=== PATIENT | female | born 1960 | race Caucasian/White ===

== ENCOUNTER 2021-05-28 16:14 | Emergency (ER) | payer BC, SELFPAY ==
[2021-05-28 16:20] VITALS: BP 145/76; PULSE 60; RESP 20; TEMP 36.3; O2SAT 98
--- NOTE | 2021-05-28 16:51 | ED.FEMALEGU ---
HPI - Female Genitourinary General Chief complaint: Urogenital-Female Stated complaint: UTI Time Seen by Provider: 05/28/21 16:51 Source: patient and RN notes reviewed Mode of arrival: ambulatory Limitations: no limitations History of Present Illness HPI Narrative: 61-year-old female presents to the [facility] with complaints of urinary symptoms. Patient reports frequency, urgency, burning. States that she is not peeing as much. Denies fevers, abdominal pain or back pain. MD elicited complaint: UTI Related Data Home Medications Medication Instructions Recorded Confirmed escitalopram oxalate 10 mg PO DAILY 05/28/21 05/28/21 sumatriptan succinate 100 mg PO DAILY PRN 05/28/21 05/28/21 Allergies Allergy/AdvReac Type Severity Reaction Status Date / Time No Known Allergies Allergy Unknown Verified 05/28/21 16:34 Review of Systems Review of Systems: All systems reviewed & are unremarkable except as noted in HPI and below Constitutional: Constitutional: Reports no additional constitutional complaints, Denies chills and Denies fatigue Eyes: Eyes: Reports no additional eye complaints ENT: Reports system reviewed and no additional complaints, except as documented Cardiovascular: Cardiovascular: Reports no additional cardiovascular complaints Respiratory: Respiratory: Reports no additional respiratory complaints Genitourinary: Genitourinary: Reports as per HPI, Reports nocturia, Reports dysuria, Denies flank pain and Denies urinary incontinence Musculoskeletal: Musculoskeletal: Reports no additional musculoskeletal complaints Integumentary/Breasts: Skin/Breast: Reports system reviewed and no additional complaints, except as docu Neurologic: Reports system reviewed and no additional complaints, except as documented Psychiatric: Psychiatric: Reports no additional psychiatric complaints Allergic/Immunologic: Allergic/Immunologic: Reports no additional allergic/immunologic complaints PMFSH Comments At the time of my signature, I reviewed and agree with the nursing past medical, surgical, social, and family history. There is no relevant family history pertinent to the patient complaint. Exam Const: General: healthy appearing, no acute distress and alert Nutritional Appearance: well nourished Orientation/consciousness: patient oriented x3 Limitations: no limitations HENMT: Head: normal to inspection Ears: external ears normal, TM's abnormal bilaterally and EAC's not normal Eyes: Pupils: Equal, round and reactive pupils present Neck: Neck: normal visual inspection, no lymphadenopathy and no meningeal signs Chest: Chest palpation & inspection: normal inspection of the chest Resp: Effort & Inspection: normal respiratory effort and no use of accessory muscles Auscultation: clear to auscultation bilaterally, no crackles, no rales, no rhonchi and no wheezes Cardio: Rate: regular rate Rhythm: regular rhythm Back/Spine/Pelvis: Back: no CVA tenderness Skin: General skin exam: normal color Rashes: no rashes Wounds: no wounds Neuro: General: patient oriented x3, moves all extremities, no meningeal signs and no focal motor deficits Speech: normal speech Gait exam (Neuro): Normal gait present Extrem: General: normal to inspection Psych: Mental Status: mental status grossly normal Affect: normal affect Attitude: cooperative Thought content: Yes Normal thought content present Judgement: Good judgement present (Psych) Course Course Emergency Course: Discharge instructions reviewed with patient, as well as provided in writing per nursing staff. The instructions also include specific and strict return/GO TO THE ER as well as f/u information. All questions have been answered, and the patient deny any further questions with discharge and discharge plan. Vital Signs Vital signs: Vital Signs Temperature 97.4 F L 05/28/21 16:20 Pulse Rate 60 05/28/21 16:20 Respiratory Rate 20 05/28/21 16:20 Blood Pressu
== END 2021-05-28 17:00 | disposition home or self-care (01) ==
PROVIDERS: Emergency Provider Nurse Practitioner
DX: N39.0 Urinary tract infection, site not specified (principal)
CPT/HCPCS: 81003; 87086; 87088; 99203; G0463

== ENCOUNTER 2021-12-07 08:16 | Emergency (ER) | payer BC, SELFPAY ==
--- NOTE | 2021-12-07 08:18 | ED.FEMALEGU ---
HPI - Female Genitourinary General Chief complaint: Urogenital-Male Stated complaint: poss uti Time Seen by Provider: 12/07/21 08:41 Source: patient and RN notes reviewed Mode of arrival: ambulatory Limitations: no limitations History of Present Illness HPI Narrative: 61-year-old female presents with concern for urinary tract infection. She reports yesterday she began having dysuria, frequency, urgency, suprapubic pressure. She denies abdominal pain, fever, body aches, chills, sweats. She reports mild low back pain. She reports she took Azo last at 1:00 yesterday. MD elicited complaint: UTI Related Data Home Medications Medication Instructions Recorded Confirmed escitalopram oxalate 10 mg tablet 10 mg PO DAILY 05/28/21 12/07/21 sumatriptan succinate 100 mg tablet 100 mg PO DAILY PRN Migraine 05/28/21 12/07/21 Headache atorvastatin 10 mg tablet 10 tablet PO DAILY 12/07/21 12/07/21 Allergies Allergy/AdvReac Type Severity Reaction Status Date / Time No Known Allergies Allergy Unknown Verified 12/07/21 08:33 Review of Systems Review of Systems: CONSTITUTIONAL: Denies malaise, chills, sweats, or fever. CARDIOVASCULAR: Denies chest pain, palpitations, or edema. RESPIRATORY: Denies cough or dyspnea. GASTROINTESTINAL: Denies abdominal pain, nausea, vomiting, diarrhea GENITOURINARY: Reports dysuria, frequency, urgency, suprapubic pressure. Denies flank pain or hematuria. SKIN: Denies rash or itching. MUSCULOSKELETAL: Reports mild low back back pain, denies myalgia. All systems reviewed & are unremarkable except as noted in HPI and below PMFSH Comments At time of signature, agree with nursing past medical, surgical, social and family history. There is no relevant family history pertinent to the presenting complaint Exam Narrative: GENERAL: Well-appearing, well-nourished, and in no acute distress. HEAD: Normocephalic. EYES: PERRLA, conjunctivae clear. NECK: Supple. No lymphadenopathy CHEST: Clear to auscultation. No respiratory distress. HEART: Regular rate and rhythm. ABDOMEN: Soft, nontender upon palpation, nondistended, normal active bowel sounds, no palpable or pulsatile masses, no guarding. No CVA tenderness SKIN: Warm, dry, no rash. NEURO: Alert and oriented x3. PSYCH: Normal mood and affect Course Course Emergency Course: Patient is aware of diagnosis, understands and agrees to treatment plan. Anticipatory guidance given. Patient agrees to follow-up as directed and is aware of reasons to seek care at the emergency department. Portions of this record may have been created with voice recognition software Level of Care: Express Care Visit Vital Signs Vital signs: Reviewed. MDM - Female Genitourinary MDM Narrative Medical decision making narrative: Exam findings and UA show no acute concerns or changes; patient is non-toxic appearing and is in no distress. Patient is appropriate for outpatient treatment and follow-up. Differential Diagnosis Differential diagnosis: Likely urinary tract infection and cystitis Critical Care Time Critical Care Time Critical Care Time: No Discharge Plan Discharge Clinical Impression: Urinary tract infection Patient Disposition: Home, Self-Care Condition: Stable Instructions: Antibiotic Form Additional Instructions: We will send a urine culture to the lab; if the culture identifies an organism that the prescribed antibiotic will not treat, you will receive a phone call from an urgent care staff member and an appropriate antibiotic will be prescribed. -Your symptoms should begin to improve within a day of starting antibiotics. But you should finish all the antibiotic pills you get. Otherwise your infection might come back. -Also recommend: increase water intake. Tylenol/ibuprofen as needed for pain or fever -Follow-up with your primary care provider for urine recheck or seek ER visit if condition worsens with high fever, nausea, vomiting and severe back p
[2021-12-07 08:22] VITALS: BP 107/75; PULSE 61; RESP 20; TEMP 36.8; O2SAT 98
== END 2021-12-07 09:10 | disposition home or self-care (01) ==
PROVIDERS: Emergency Provider Nurse Practitioner
DX: N39.0 Urinary tract infection, site not specified (principal); F41.9 Anxiety disorder, unspecified
CPT/HCPCS: 81003; 87086; 99213; G0463

== ENCOUNTER 2022-09-15 16:10 | Emergency (ER) | payer BC, SELFPAY ==
[2022-09-15 16:17] VITALS: BP 106/61; PULSE 82; RESP 16; TEMP 37.8; O2SAT 99
--- NOTE | 2022-09-15 16:19 | ED.URI ---
HPI - URI/Sore Throat General Chief Complaint: Upper Respiratory Infection Stated Complaint: sore throat Time Seen by Provider: 09/15/22 16:30 Source: patient and RN notes reviewed Mode of arrival: ambulatory Limitations: no limitations History of Present Illness HPI Narrative: 62-year-old female presents with concern for cough and sore throat. Reports symptoms started yesterday. She reports she took a negative COVID test today. Reports she has been taking and Mucinex without relief. She denies fever, aches. Reports chills MD elicited complaint: cough and sore throat Related Data Home Medications Medication Instructions Recorded Confirmed escitalopram oxalate 10 mg tablet 10 mg PO DAILY 05/28/21 09/15/22 sumatriptan succinate 100 mg tablet 100 mg PO DAILY PRN Migraine 05/28/21 09/15/22 Headache Allergies Allergy/AdvReac Type Severity Reaction Status Date / Time No Known Allergies Allergy Unknown Verified 12/07/21 08:33 Review of Systems Review of Systems: CONSTITUTIONAL: Reports malaise, chills. Denies sweats, or fever. EYES: Denies visual changes, redness, or discharge. ENT: Reports rhinorrhea, congestion, sore throat. CARDIOVASCULAR: Denies chest pain, palpitations, or edema. RESPIRATORY: Reports cough. Denies dyspnea. GASTROINTESTINAL: Denies abdominal pain, nausea, vomiting, diarrhea SKIN: Denies rash or itching. MUSCULOSKELETAL: Denies myalgia. NEUROLOGIC: Denies headache. All systems reviewed & are unremarkable except as noted in HPI and below PMFSH Comments At time of signature, agree with nursing past medical, surgical, social and family history. There is no relevant family history pertinent to the presenting complaint Exam Narrative: GENERAL: Nontoxic appearing and in no acute distress. HEAD: Normocephalic EYES: PERRLA, conjunctivae clear ENT: Nares clear, turbinates edematous and erythematous, clear discharge. Mucous membranes moist. TM pearly lundy with dull light reflex bilaterally; no tragal tenderness. Oropharynx not erythematous without lesions. Tonsils not enlarged and without exudate, no drooling, no hoarseness, no trismus, uvula midline. NECK: Supple. No lymphadenopathy CHEST: Clear to auscultation, breath sounds equal. No wheezing, rhonchi, rales, or stridor. No respiratory distress, speaks in full sentences. Cough noted HEART: Regular rate and rhythm. No murmur heard. SKIN: Warm, dry, no rash. NEURO: Alert and oriented x3. PSYCH: Normal mood and affect Course Course Emergency Course: Patient is aware of diagnosis, understands and agrees to treatment plan. Anticipatory guidance given. Patient agrees to follow-up as directed and is aware of reasons to seek care at the emergency department. Portions of this record may have been created with voice recognition software Level of Care: Express Care Visit Vital Signs Vital signs: Reviewed. MDM - URI/Sore Throat MDM Narrative Medical decision making narrative: Differential diagnosis considered: Martinez virus, strep pharyngitis, allergic rhinitis, upper respiratory tract infection, sinusitis, rhinosinusitis, nasopharyngitis. viral pharyngitis, otitis media, otitis externa, pneumonia, bronchitis, viral cough syndrome, viral syndrome, and influenza. Exam findings show no acute concerns or changes; patient is non-toxic appearing and is in no distress. Patient is appropriate for outpatient treatment and follow-up. Lab Data Attestation: I reviewed the patient's lab results. Critical Care Time Critical Care Time Critical Care Time: No Discharge Plan Discharge Clinical Impression: Viral URI with cough Patient Disposition: Home, Self-Care Condition: Stable Instructions: Acute Cough (ED) Additional Instructions: Your rapid strep swab was negative today at [facility]. A throat culture will be sent to the laboratory for further testing. If the test is positive, you will receive a phone call within 48 hours and an appropriate a
== END 2022-09-15 16:40 | disposition home or self-care (01) ==
PROVIDERS: Emergency Provider Nurse Practitioner; PCP Physician Assistant
DX: J06.9 Acute upper respiratory infection, unspecified (principal); R05.9 Cough, unspecified
CPT/HCPCS: 87081; 87880; 99213; G0463

== ENCOUNTER 2022-12-27 13:31 | Emergency (ER) | payer BC, SELFPAY ==
--- NOTE | ~2022-12-27 | XR_ITS ---
Right ankle Technique: AP, oblique, and lateral views were obtained. Clinical History: Pain Findings: No acute fracture or dislocation is seen. Osseous alignment is anatomic. Ankle mortise and other visualized joint spaces are preserved. Mild lateral soft tissue swelling noted. Impression: No fracture or dislocation. Lateral soft tissue swelling. Reviewed, dictated and finalized at [facility]. Impression: No fracture or dislocation. Lateral soft tissue swelling.
[2022-12-27 13:38] VITALS: BP 131/76; PULSE 88; RESP 14; TEMP 36.4; O2SAT 98
[2022-12-27 13:51] VITALS: BP 131/76; PULSE 88; RESP 14; TEMP 36.4; O2SAT 98
--- NOTE | 2022-12-27 14:27 | ED.GENADULT ---
HPI - General Adult General Chief complaint: Extremity Injury, Lower Stated complaint: Right Ankle Injury Source: patient Mode of arrival: ambulatory Limitations: no limitations History of Present Illness HPI narrative: Patient presents for evaluation of right ankle pain. Symptom onset yesterday. She was walking when she slipped in gravel. She twisted her ankle and right ankle hit the ground. She now has 6/10 pain in right ankle, sharp in nature. Pain radiates proximal and distal to that. Reports swelling in the affected area. She can bear weight. No paresthesias. No loss of range of motion but movement makes her pain worse. Related Data Home Medications Medication Instructions Recorded Confirmed escitalopram oxalate 10 mg tablet 10 mg PO DAILY 05/28/21 12/27/22 sumatriptan succinate 100 mg tablet 100 mg PO DAILY PRN Migraine 05/28/21 12/27/22 Headache atorvastatin 40 mg tablet 40 mg PO DAILY 12/27/22 12/27/22 Allergies Allergy/AdvReac Type Severity Reaction Status Date / Time simvastatin AdvReac Joint Pain Verified 12/27/22 13:49 Review of Systems Review of Systems: CONSTITUTIONAL: Denies fever, chills, or sweats. EYES: Denies visual changes, redness, or discharge. ENT: Denies rhinorrhea, congestion, sore throat, or otalgia. CARDIOVASCULAR: Denies chest pain, palpitations, or edema. RESPIRATORY: Denies cough or dyspnea. GASTROINTESTINAL: Denies abdominal pain, nausea, vomiting, or diarrhea. GENITOURINARY: Denies dysuria or hematuria. SKIN: Denies rash or itching. MUSCULOSKELETAL: Reports right ankle pain and swelling NEUROLOGIC: Denies headache, numbness, dizziness, or weakness. PSYCHIATRIC: Denies anxiety or depression. [facility] Past Medical History Medical History (Updated 12/27/22 @ 14:43 by ALEKSANDRA Sandra, LIDIA) Anxiety Hyperlipidemia Right ankle sprain Surgical History Surgical History History of cholecystectomy Family History Family History (Updated 12/27/22 @ 14:31 by ALEKSANDRA Sandra, LIDIA) Mother Family history non-contributory Social History Social History Smoking status: Never smoker Substance use: never Living arrangements: with family Gender identity (if verbalized by the patient): Female Sexual Orientation (if Verbalized by the Patient): Straight or Heterosexual Spiritual care concerns: No Exam Narrative: GENERAL: Well-appearing, well-nourished, and in no acute distress. HEAD: Normocephalic, atraumatic. EYES: PERRLA and EOMI. ENT: Nares clear, no rhinorrhea or epistaxis. Mucous membranes moist. Oropharynx without tonsillar hypertrophy exudate or other lesions. Bilateral TMs pearly lundy nonbulging NECK: Supple. No adenopathy or masses. No carotid bruits or JVD CHEST: Clear to auscultation. No respiratory distress. No wheezes rales or rhonchi HEART: Regular rate and rhythm. No murmur heard. Normal peripheral pulses. ABDOMEN: Soft, nontender, nondistended, normal active bowel sounds. EXTREMITIES: Able to dorsi and plantar flex the right foot but does so with hesitancy secondary to pain. Right ankle is edematous. There is tenderness over the right lateral malleolus and dorsal aspect of the proximal right foot SKIN: Warm, dry, no rash. NEURO: No focal deficits. Alert and oriented x3. PSYCH: Normal mood and affect. Course Course Emergency Course: This is a 62-year-old female who presented for evaluation of right ankle pain and swelling. X-ray was negative for fracture. Exam is consistent with sprain. Encouraged her to buy a Velcro ankle stirrup splint. She was provided with an Bong wrap here. Will discharge with a small quantity of hydrocodone. She also take ibuprofen for pain and swelling. Follow up with primary next week. Go to ER for intractable pain or worsening symptoms. Pt in agreement with plan of care. Level o
== END 2022-12-27 14:47 | disposition home or self-care (01) ==
PROVIDERS: Emergency Provider Nurse Practitioner; PCP Physician Assistant
DX: S93.401A Sprain of unspecified ligament of right ankle, initial encounter (principal); X50.9XXA Other and unspecified overexertion or strenuous movements or postures, initial encounter; E78.5 Hyperlipidemia, unspecified; F41.9 Anxiety disorder, unspecified
CPT/HCPCS: 73610; 99213; G0463

== ENCOUNTER 2024-10-26 17:22 | Emergency (ER) | payer BC, SELFPAY ==
[2024-10-26 17:28] VITALS: BP 145/91; PULSE 77; RESP 20; TEMP 36.2; O2SAT 96
--- NOTE | 2024-10-26 17:39 | ED_ITS ---
HPI - General Adult General Chief complaint: Urogenital-Female Stated complaint: Urinary Problem/Sinus Source: patient and RN notes reviewed Mode of arrival: ambulatory Limitations: no limitations History of Present Illness HPI narrative: 64-year-old female presented for complaint of burning with urination, frequency and urgency. Onset yesterday. Denies hematuria, nausea, vomiting, abdominal pain, flank pain, constipation, diarrhea, fevers or chills. Patient also reports nasal congestion and drainage with a cough. Onset 2 days. The cough started last night. Denies shortness of breath, wheezing, myalgia, or lethargy. Patient has been taking Mucinex. Related Data Home Medications ?Medication ?Instructions ?Recorded ?Confirmed ?Last Taken ?Type escitalopram oxalate 10 mg tablet 10 mg PO DAILY 05/28/21 12/27/22 Unknown History sumatriptan succinate 100 mg tablet 100 mg PO DAILY PRN Migraine 05/28/21 12/27/22 Unknown History Headache atorvastatin 40 mg tablet 40 mg PO DAILY 12/27/22 12/27/22 Unknown History dupilumab 300 mg/2 mL subcutaneous mg subcut 10/26/24 Unknown History pen injector (Dupixent) ondansetron 4 mg disintegrating mg 10/26/24 Unknown History tablet Allergies Allergy/AdvReac Type Severity Reaction Status Date / Time simvastatin AdvReac Joint Pain Verified 10/26/24 17:32 Review of Systems Review of Systems: per HPI [facility] Past Medical History Medical History (Updated 10/26/24 @ 17:49 by Krissy Alfaro APRN) Right ankle sprain Anxiety Hyperlipidemia Surgical History Surgical History History of cholecystectomy Family History Family History (Updated 12/27/22 @ 14:31 by ALEKSANDRA Sandra, ) Mother Family history non-contributory Social History Social History Smoking status: Never smoker Substance use: never Living arrangements: with family Gender identity (if verbalized by the patient): Female Sexual Orientation (if Verbalized by the Patient): Straight or Heterosexual Spiritual care concerns: No Comments At time of signature, I have reviewed and agree with nursing past medical, surgical, social and family history unless otherwise noted. Please see nursing chart for further information. There is no relevant family history pertinent to the presenting complaint Exam Narrative: GENERAL: Well-appearing and in no acute distress. ENT: Mucous membranes pink and moist. Nasal congestion noted. Bilateral TMs pearly lundy with normal light reflex. CHEST: No respiratory distress. Clear to auscultation. HEART: Regular rate and rhythm. ABDOMEN: Soft, nontender, nondistended, normal active bowel sounds. No CVA tenderness SKIN: Warm, dry NEURO: No focal deficits. Alert and oriented x3. Gait steady. PSYCH: Normal affect. Course Course Emergency Course: Patient is aware of diagnosis, understands and agrees to treatment plan. Anticipatory guidance given. Patient agrees to follow-up as directed and is aware of reasons to seek care at the emergency department. Portions of this record may have been created with voice recognition software Level of Care: Express Care Visit Vital Signs Vital signs: Reviewed Medical Decision Making MDM Narrative Medical decision making narrative: Discussed physical exam findings. Will culture urine. Advised supportive measures for allergic rhinitis and signs/symptoms to go to the ER. Pt is appropriate for outpt treatment and f/u. Differential Diagnosis Differential Diagnosis: Influenza, covid, sinusitis, OM, strep pharyngitis, URI, cystitis, UTI Discharge Plan Discharge Clinical Impression: Dysuria, Allergic rhinitis Patient Disposition: Home Condition: Stable Instructions: Antibiotic Form, Urinary Tract Infection in Women (ED), Allergies (ED) Additional Instructions: Urine: Take the antibiotic as prescribed The urine will be sent of for a culture to identify what type of bacteria is causing your infection. If the culture shows that the antibiotic will not get rid of your infection, you will be notified and a new antibiotic will be called in for you. Increase water intake Cough/congestion: Recommendations: Flonase spray and Zyrtec (or Claritin/Nae) over the counter Cough syrup may cause drowsiness; avoid driving or take it at night time. Tylenol 1000mg every 8 hours as needed for pain Rest, fluids, and increase humidity of the air at home. Follow up with your primary care provider in 1 week. Go to the ER for worsening symptoms or concerns. Patient Language: [place] Islander Prescriptions: New amoxicillin-pot clavulanate [Augmentin] 500-125 mg tablet 1 tablet PO Q12H 7 Days Qty: 14 0RF No Action escitalopram oxalate 10 mg tablet 10 mg PO DAILY sumatriptan succinate 100 mg tablet 100 mg PO DAILY PRN (Reason: Migraine Headache) ondansetron 4 mg tablet,disintegrating Dupixent Pen 300 mg/2 mL pen injector SUBCUT atorvastatin 40 mg Tablet 40 mg PO DAILY Follow-up/Referrals: Dane,JUSTICE Mcmillan [Primary Care Provider] - Time of Disposition: 17:50
[2024-10-26 17:45] LABS: EDUAAPPEAR Clear; EDUABILI Negative (Negative); EDUABLOOD 2+ (Negative); EDUACOLOR1 Yellow; EDUAGLUCOSE Negative (Negative); EDUAKETONE Negative (Negative); EDUALEUKO Negative (Negative); EDUANITRATE Negative (Negative); EDUAPROTEIN Negative (Negative); EDUAUROBILI 0.2
--- OUTSIDE RECORDS SUMMARY | 2024-10-26 17:49 | XMS_ITS | Encounter Summary ---
Author Organization [facility] Address [address] [place] [address] Phone Care Team Providers Care Senior Staff Consultant Name Role Phone Deyanira Vela PAC Primary Care Pro vider Reason for Visit * Reason Comments Medication Refill Encounter Details Date Type Department Care Team (Late st Contact Info) Description 06/23/2020 Refill [facility] Medical [facility] - Family [facility] [address] [place] [address] Deyanira Vela, PAC [address] [place] [place] [address] Medication Refill Social History Tobacco Use Types Packs/Day Years Used Date Smoking Tobacco: Never Smokeless Tobacco: Never Alcohol Use Standard Drinks/Week Comments No 0 (1 standard drink = 0.6 oz pur e alcohol) Occasional PHQ-2 Answer Date Recorded PHQ-2 Score 8 08/15/2019 Education Answer Date Recorded What is the highest level of school you have completed or the highest degree you have received? Associate degree: academic program 04/18/2020 Comments No Sex and Gender Information Value Date Recorded Sex Assigned at Not on file Legal Sex Female 9:59 PM CDT Gender Identity Not on file Sexual Orientation Not on file documented as of this encounter Miscellaneous Notes * Telephone Encounter - Josefina Alvarado RN - 06/23/2020 10:06 PM CST Medication failed the protocol, provider to review and approve the medication order if appropriate. Requested Prescriptions Pending Prescriptions Disp Refills escitalopram (LEXAPRO) 10 MG Tablet [Pharmacy Med Name: ESCITALOPRAM 10 MG TABLET] 30 Tab 8 Sig: TAKE ONE TABLET BY MOUTH ONCE DAILY Not Delegated - Psychiatry: Antidepressants Failed - 06/23/2020 12:30 PM Failed - This refill cannot be delegated Passed - Valid encounter within last 12 months Past Office Visits Recent Outpatient Visits 2 months ago Hyperlipidemia, unspecified hyperlipidemia type [facility] Deyanira Rucker PAC 10 months ago Well adult exam [facility] Deyanira Rucker PAC 1 year [facility] Hyperlipidemia, unspecified hyperlipidemia [facility] 2 years ago Other migraine without status migrainosus, not intractable [facility] Upcoming Appointments Future Appointments In [address] [facility] In [address] [facility] 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 Recent Visits Date Type Provider Dept 04/20/20 Office Visit Deyanira Vela PAC [facility] 08/15/19 Office Visit Deyanira Vela PAC [facility] Showing recent visits within past 460 days with a meds authorizing provider and meeting all other requirements Future Appointments Date Type Provider Dept 08/22/20 Appointment Deyanira Vela PAC [facility] Showing future appointments within next 90 days with a meds authorizing provider and meeting all other requirements IRATORY THERAPY ASSISTANT documented in this encounter Plan of Treatment Upcoming Encounters Date Type Department Care Team (Late st Contact Info) Description 11/14/2024 7:10 AM CDT Lab [facility] Internal Medicine [place] [address] [place] [address] [facility] 12/07/2024 10:15 AM CDT Office Visit [facility] - Internal Medicine - [place] [address] [place] [id number] Deyanira Vela, PAC [address] [place] [address] documented as of this encounter Visit Diagnoses Not on filedocumented in this encounter Additional Health Concerns Infection Onset Date Last Indicated Resolved Time COVID - 19 09/01/2022 09/01/2022 09/11/2022 12:1 6 AM RESPIRATORY THERAPY ASSISTANT Respiratory Rule Out - RPA 09/01/2022 09/01/2022 0 09/01/2022 1:14 PM RESPIRATORY THERAPY ASSISTANT Respiratory Rule Out - RPA 09/29/2022 09/29/2022 0 09/29/2022 9:48 AM CDT COVID - 19 09/29/2022 09/29/2022 10/09/2022 12:1 6 AM CDT COVID - 19 07/20/2023 07/20/2023 07/20/2023 9:55 AM RESPIRATORY THERAPY ASSISTANT Respiratory Rule Out - RPA 07/20/2023 07/20/2023 0 07/20/2023 9:55 AM RESPIRATORY THERAPY ASSISTANT COVID - 19 07/20/2023 07/20/2023 07/30/2023 12:1 6 AM RESPIRATORY THERAPY ASSISTANT COVID - 19 09/11/2023 09/11/2023 09/11/2023 1:47 PM RESPIRATORY THERAPY ASSISTANT Respiratory Rule-Out 09/11/2023 09/11/2023 024 1:52 PM RESPIRATORY THERAPY ASSISTANT COVID - 19 09/11/2023 09/11/2023 09/11/2023 1:53 PM RESPIRATORY THERAPY ASSISTANT Assessment Noted Time PHQ-9 Depression Total Score: 8 08/15/19 20 8:24 AM RESPIRATORY THERAPY ASSISTANT documented as of this encounter Care Teams Senior Staff Consultant Relationship Specialty Start Date End Date Deyanira Vela, PAC [address] [place] [address] PCP - General Physician Pile Driver Operator Helper 02/18/16 documented as of this encounter
--- OUTSIDE RECORDS SUMMARY | 2024-10-26 17:49 | XMS_ITS | Encounter Summary ---
Author Organization [facility] Address [address] [place] [address] Phone Care Team Providers Care Junior Recruiter Name Role Phone Deyanira Vela PAC Primary Care Pro vider Reason for Visit * Reason Comments Medication Refill Encounter Details Date Type Department Care Team (Late st Contact Info) Description 09/08/2022 Refill [facility] - [facility] - [place] [address] [place] [id number] Deyanira Vela, PAC [address] [place] [address] Medication Refill Social History Tobacco Use Types Packs/Day Years Used Date Smoking Tobacco: Never Smokeless Tobacco: Never Alcohol Use Standard Drinks/Week Comments No 0 (1 standard drink = 0.6 oz pur e alcohol) Occasional PHQ-2 Answer Date Recorded Total Score - Questions 1-9 0 05/0 12/2021 Education Answer Date Recorded What is the highest level of school you have completed or the highest degree you have received? Associate degree: academic program 04/18/2020 Comments No Sex and Gender Information Value Date Recorded Sex Assigned at Not on file Legal Sex Female 9:59 PM CDT Gender Identity Not on file Sexual Orientation Not on file COVID-19 Exposure Response Date Recorded In the last 10 days, have yo u been in contact with someone who was confirmed or suspected to have Coronavirus/COVID-19? Unable to assess 09/01/2022 1:11 PM MAINSPRING REVERSE WINDER documented as of this encounter Miscellaneous Notes * Telephone Encounter - Tegan Riddle RN - 09/09/2022 10:17 AM CST Medication failed the protocol, provider to review and approve the medication order if appropriate. Requested Prescriptions Pending Prescriptions Disp Refills escitalopram (LEXAPRO) 10 MG Tablet [Pharmacy Med Name: ESCITALOPRAM 10 MG TABLET] 30 Tablet 8 Sig: TAKE 1 TABLET BY MOUTH EVERY DAY [facility] (6 Month Refill Only) Protocol Failed - 09/08/2022 7:35 PM Failed - Has an encounter in the past 6 months with a depression, anxiety, adjustment disorder, OCD, or PTSD visit diagnosis Passed - Visit with relevant provider in past 6 months or upcoming 90 days Recent Visits Date Type Provider Dept 09/01/22 Office Visit Deyanira Veal PAC [facility] [place] Showing recent visits within past 182 days and meeting all other requirements Future Appointments Date Type Provider Dept 11/14/22 Appointment Deyanira Vela PAC [facility] [place] Showing future appointments within next 90 days and meeting all other requirements Passed - Patient has established therapy with [facility] for at least 6 months SPRING REVERSE WINDER documented in this encounter Plan of Treatment Upcoming Encounters Date Type Department Care Team (Late st Contact Info) Description 11/14/2024 7:10 AM CDT Lab [facility] Internal Medicine [place] [address] [place] [address] [phone] [facility] [place] 12/07/2024 10:15 AM CDT Office [facility] [address] [place] [phone] Deyanira Vela PAC [address] [place] [address] documented as of this encounter Visit Diagnoses Not on filedocumented in this encounter Additional Health Concerns Infection Onset Date Last Indicated Resolved Time COVID - 19 09/01/2022 09/01/2022 09/11/2022 12:1 6 AM MAINSPRING REVERSE WINDER Respiratory Rule Out - RPA 09/29/2022 09/29/2022 0 09/29/2022 9:48 AM CDT COVID - 19 09/29/2022 09/29/2022 10/09/2022 12:1 6 AM CDT COVID - 19 07/20/2023 07/20/2023 07/20/2023 9:55 AM MAINSPRING REVERSE WINDER Respiratory Rule Out - RPA 07/20/2023 07/20/2023 0 07/20/2023 9:55 AM MAINSPRING REVERSE WINDER COVID - 19 07/20/2023 07/20/2023 07/30/2023 12:1 6 AM MAINSPRING REVERSE WINDER COVID - 19 09/11/2023 09/11/2023 09/11/2023 1:47 PM MAINSPRING REVERSE WINDER Respiratory Rule-Out 09/11/2023 09/11/2023 024 1:52 PM MAINSPRING REVERSE WINDER COVID - 19 09/11/2023 09/11/2023 09/11/2023 1:53 PM MAINSPRING REVERSE WINDER Assessment Noted Time PHQ-9 Depression Total Score: 0 11/09/19 22 8:00 AM CDT documented as of this encounter Care Teams Junior Recruiter Relationship Specialty Start Date End Date Deyanira Vela, PAC [address] [place] [address] PCP - General Physician Camera Engineer 02/18/16 documented as of this encounter
--- OUTSIDE RECORDS SUMMARY | 2024-10-26 17:49 | XMS_ITS | Encounter Summary ---
Author Organization [facility] Address [address] [place] [address] Phone Care Team Providers Care Medical Coder Name Role Phone Deyanira Vela PAC Primary Care Pro vider Reason for Visit * Reason Comments Medication Refill Encounter Details Date Type Department Care Team (Late st Contact Info) Description 08/14/2022 Refill [facility] - [place] [address] [place] [phone] Deyanira Vela, PAC [address] [place] [address] Medication Refill Social History Tobacco [...] Telephone Encounter - Tegan Riddle RN - 08/15/2022 10:45 AM CST Medication failed the protocol, provider to review and approve the medication order if appropriate. Requested Prescriptions Pending Prescriptions Disp Refills SUMAtriptan (IMITREX) 100 MG Tablet [Pharmacy Med Name: SUMATRIPTAN SUCC 100 MG TABLET] 9 Tablet 10 Sig: Take 1 Tablet by mouth daily as needed for Migraine for up to 1 dose. Use as directed. May repeat dose in 2 hours if headache recurs. Not Delegated - Serotonin Agonists (Oral and Nasal) Protocol Failed - 08/14/2022 7:15 PM Failed - This refill cannot be delegated; check utilization no more than 9 doses per month Failed - No documented Systolic BP > 200 within past 3 months Passed - Visit with relevant provider in past 24 months or upcoming 90 days Recent Visits Date Type Provider Dept 11/08/21 Office Visit Deyanira Vela, MARIE [facility] [place] 11/02/20 Office Visit Deyanira Vela, MARIE [facility] [place] 10/26/20 Office Visit Deyanira Vela PAC [facility] [place] Showing recent visits within past 730 days and meeting all other requirements Future Appointments No visits were found meeting these conditions. Showing future appointments within next 90 days and meeting all other requirements Passed - Number of active Serotonergic medications less than 3 CTOR EQUIPMENT documented in this encounter Plan of Treatment Upcoming Encounters Date Type Department Care Team (Late st Contact Info) Description 11/14/2024 7:10 AM CDT Lab [facility] - Internal Medicine [place] [address] [place] [phone] [facility] [place] 12/07/2024 10:15 AM CDT Office Visit [facility] Internal Medicine [place] [address] [place] [address] [place] [phone] Deyanira Vela PAC [address] [place] [address] documented as of this encounter Visit Diagnoses Not on filedocumented in this encounter Additional Health Concerns Infection Onset Date Last Indicated Resolved Time COVID - 19 09/01/2022 09/01/2022 09/11/2022 12:1 6 AM DIRECTOR EQUIPMENT Respiratory Rule Out - RPA 09/01/2022 09/01/2022 0 09/01/2022 1:14 PM DIRECTOR EQUIPMENT Respiratory Rule Out - RPA 09/29/2022 09/29/2022 0 09/29/2022 9:48 AM CDT COVID - 19 09/29/2022 09/29/2022 10/09/2022 12:1 6 AM CDT COVID - 19 07/20/2023 07/20/2023 07/20/2023 9:55 AM DIRECTOR EQUIPMENT Respiratory Rule Out - RPA 07/20/2023 07/20/2023 0 07/20/2023 9:55 AM DIRECTOR EQUIPMENT COVID - 19 07/20/2023 07/20/2023 07/30/2023 12:1 6 AM DIRECTOR EQUIPMENT COVID - 19 09/11/2023 09/11/2023 09/11/2023 1:47 PM DIRECTOR EQUIPMENT Respiratory Rule-Out 09/11/2023 09/11/2023 024 1:52 PM DIRECTOR EQUIPMENT COVID - 19 09/11/2023 09/11/2023 09/11/2023 1:53 PM DIRECTOR EQUIPMENT Assessment Noted Time PHQ-9 Depression Total Score: 0 11/09/19 22 8:00 AM CDT documented as of this encounter Care Teams Medical Coder Relationship Specialty Start Date End Date Deyanira Vela, PAC [address] [place] [address] PCP - General Physician Gas Appliance Installer 02/18/16 documented as of this encounter
--- OUTSIDE RECORDS SUMMARY | 2024-10-26 17:49 | XMS_ITS | Encounter Summary ---
Author Organization [facility] Address [address] [place] [address] Phone Care Team Providers Care Lockstitch Topstitcher Name Role Phone Deyanira Vela PAC Primary Care Pro vider Reason for Visit * Reason Comments Medication Refill Encounter Details Date Type Department Care Team (Late st Contact Info) Description 10/06/2022 Refill [facility] - [place] [address] [place] [phone] Deyanira Vela, PAC [address] [place] [address] Medication Refill Social History Tobacco [...] was confirmed or suspected to have Coronavirus/COVID-19? No / Unsure 09/29/2022 12:32 PM CDT documented as of this encounter Miscellaneous Notes * Telephone Encounter - Tegan Riddle RN - 10/06/2022 10:35 AM CDT Medication failed the protocol, provider to review and approve the medication order if appropriate. Requested Prescriptions Pending Prescriptions Disp Refills SUMAtriptan (IMITREX) 100 MG Tablet [Pharmacy Med Name: SUMATRIPTAN SUCC 100 MG TABLET] 9 Tablet 1 Sig: Take 1 Tablet by mouth daily as needed for Migraine. Use as directed. May repeat dose in 2 hours if headache recurs. Not Delegated - Serotonin Agonists (Oral and Nasal) Protocol Failed - 10/06/2022 10:33 AM Failed - This refill cannot be delegated; check utilization no more than 9 doses per month Passed - Visit with relevant provider in past 24 months or upcoming 90 days Recent Visits Date Type Provider Dept 09/29/22 Office Visit Deyanira Vela PAC [facility] [place] 09/01/22 Office Visit Deyanira Vela, PAC [facility] [place] 11/08/21 Office Visit Deyanira Vela PAC [facility] [place] 11/02/20 Office Visit Deyanira Vela PAC [facility] [place] 10/26/20 Office Visit Deyanira Vela PAC [facility] [place] Showing recent visits within past 730 days and meeting all other requirements Future Appointments Date Type Provider Dept 11/14/22 Appointment Deyanira Vela PAC [facility] [place] Showing future appointments within next 90 days and meeting all other requirements Passed - No documented Systolic BP > 200 within past 3 months Passed - Number of active Serotonergic medications less than 3 documented in this encounter Plan of Treatment Upcoming Encounters Date Type Department Care Team (Late st Contact Info) Description 11/14/2024 7:10 AM CDT Lab [facility] - Internal Medicine - [place] [address] [place] [address] [address] [place] 12/07/2024 10:15 AM CDT Office Visit [facility] - Internal Medicine - [place] [address] [place] [address] Deyanira Vela, PAC [address] [place] [address] documented as of this encounter Visit Diagnoses Not on filedocumented in this encounter Additional Health Concerns Infection Onset Date Last Indicated Resolved Time COVID - 19 09/29/2022 09/29/2022 10/09/2022 12:1 6 AM CDT COVID - 19 07/20/2023 07/20/2023 07/20/2023 9:55 AM PONY CYLINDER PRESS OPERATOR Respiratory Rule Out - RPA 07/20/2023 07/20/2023 0 07/20/2023 9:55 AM PONY CYLINDER PRESS OPERATOR COVID - 19 07/20/2023 07/20/2023 07/30/2023 12:1 6 AM PONY CYLINDER PRESS OPERATOR COVID - 19 09/11/2023 09/11/2023 09/11/2023 1:47 PM PONY CYLINDER PRESS OPERATOR Respiratory Rule-Out 09/11/2023 09/11/2023 024 1:52 PM PONY CYLINDER PRESS OPERATOR COVID - 19 09/11/2023 09/11/2023 09/11/2023 1:53 PM PONY CYLINDER PRESS OPERATOR Assessment Noted Time PHQ-9 Depression Total Score: 0 11/09/19 22 8:00 AM CDT documented as of this encounter Care Teams Lockstitch Topstitcher Relationship Specialty Start Date End Date Deyanira Vela, PAC [address] [place] [address] PCP - General Physician Tile And Mottle Supervisor 02/18/16 documented as of this encounter
--- OUTSIDE RECORDS SUMMARY | 2024-10-26 17:50 | XMS_ITS | Encounter Summary ---
Author Organization [facility] Address [address] [place] [address] Phone Care Team Providers Care Glass Cut Off Tender Name Role Phone Deyanira Vela PAC Primary Care Pro vider Reason for Visit * Reason Comments Medication Refill Encounter Details Date Type Department Care Team (Late st Contact Info) Description 09/09/2023 Refill [facility] Medical [facility] - Internal Medicine - [place] [address] [place] [id number] Deyanira Vela, PAC [address] [place] [address] Medication Refill Social History Tobacco Use Types Packs/Day Years Used Date Smoking Tobacco: Never Smokeless Tobacco: Never Alcohol Use Standard Drinks/Week Comments No 0 (1 standard drink = 0.6 oz pur e alcohol) Occasional [facility] Utilities Answer Date Recorded In the past 12 months has [employer], gas, oil, or water [employer] threatened to shut off services in your home? No 09/11/2023 Social Connection and Isolat ion Panel [NHANES] Answer Date Recorded In a typical week, how many times do you talk on the phone with family, friends, or neighbors? More than three times a week 09/11/2023 How often do you get togethe r with friends or relatives? Once a week 09/11/2023 How often do you attend [facility] or oriental orthodox services? Patient declined 09/11/2023 Do you belong to any clubs o r organizations such as rastafarian groups, unions, fraternal or athletic groups, or school groups? No 09/11/2023 How often do you attend meet ings of the clubs or organizations you belong to? Patient declined 09/11/2023 Are you , , di vorced, , never , or living with a partner? 09/11/2023 AUDIT-C Answer Date Recorded Q1: How often do you have a drink containing alcohol? Never 09/11/2023 Q2: How many drinks containi ng alcohol do you have on a typical day when you are drinking? Patient does not drink Q3: How often do you have si x or more drinks on one occasion? Never 09/11/2023 Overall Financial Resource Strain (CARDIA) Answe r Date Recorded How hard is it for you to pa y for the very basics like food, housing, medical care, and heating? Patient declined 09/11/2023 PHQ-2 Answer Date Recorded Total Score - Questions 1-9 2 11/03 [facility] - Occupational Stress Questionnaire Answer Date Recorded Do you feel stress - tense, restless, nervous, or anxious, or unable to sleep at night because your mind is troubled all the time - these days? Only a little 09/11/2023 Exercise Vital Sign Answer Date Recorde d On average, how many days pe r week do you engage in moderate to strenuous exercise (like a brisk walk)? 6 days 09/11/2023 On average, how many minutes do you engage in exercise at this level? 40 min 09/11/2023 Hunger Vital Sign Answer Date Recorded Within the past 12 months, y ou worried that your food would run out before you got the money to buy more. Never true 09/11/19 24 Within the past 12 months, t he food you bought just didn't last and you didn't have money to get more. Never true 09/11/2023 PRAPARE - Transportation Answer Date Re corded In the past 12 months, has l ack of transportation kept you from medical appointments or from getting medications? No 02/2024 In the past 12 months, has l ack of transportation kept you from meetings, work, or from getting things needed for daily living? No 09/11/2023 Housing Stability Vital Sign Answer Jose A e Recorded In the last 12 months, was t here a time when you were not able to pay the mortgage or rent on time? No 09/11/2023 In the last 12 months, how many places have you lived? 1 09/11/2023 In the last 12 months, was t here a time when you did not have a steady place to sleep or slept in a senior care (including now)? No 09/11/2023 Education Answer Date Recorded What is the highest level of school you have completed or the highest degree you have received? Bachelor's degree (e.g., BA, AB, BS) 11/17/2022 Comments No Sex and Gender Information Value Date Recorded Sex Assigned at Not on file Legal Sex Female 9:59 PM CDT Gender Identity Not on file Sexual Orientation Not on file documented as of this encounter Functional Status * Audit-C Score Answer Date of Assessment Author 0 09/11/2023 9:20 AM E COMMERCE WEB DEVELOPER Myra Crespo RMA * Q1: How often do you have a drink containing alcohol? Answer Date of Assessment Author Never 09/11/2023 9:20 AM Myra Barbour RMA * Q2: How many drinks containing alcohol do you have on a typical day when you are drinking? Answer Date of Assessment Author Patient does not drink 09/11/2023 9:20 AM E COMMERCE WEB DEVELOPER Latia Nair RMA * Q3: How often do you have six or more drinks on one occasion? Answer Date of Assessment Author Never 09/11/2023 9:20 AM Myra Barbour RMA documented as of this encounter Miscellaneous Notes * Telephone Encounter - Tegan Riddle RN - 09/09/2023 10:18 AM CST Medication failed the protocol, provider to review and approve the medication order if appropriate. Requested Prescriptions Pending Prescriptions Disp Refills SUMAtriptan (IMITREX) 100 MG Tablet [Pharmacy Med Name: SUMATRIPTAN SUCC 100 MG TABLET] 9 Tablet 1 Sig: TAKE 1 TABLET BY MOUTH DAILY NEEDED FOR MIGRAINE. USE DIRECTED. MAY REPEAT DOSE IN 2 HOURS IF HEADACHE RECURS. Not Delegated - Serotonin Agonists (Oral and Nasal) Protocol Failed - 09/09/2023 9:17 AM Failed - This refill cannot be delegated; check utilization no more than 9 doses per month Passed - Visit with relevant provider in past 24 months or upcoming 90 days Recent Visits Date Type Provider Dept 07/20/23 Office Visit Yohan Tovar MD [facility] [place] 11/17/22 Office Visit Deyanira Vela, MARIE [facility] [place] 09/29/22 Office Visit Deyanira Vela, PAC [facility] [place] 09/01/22 Office Visit Deyanira Vela, PAC [facility] [place] 11/08/21 Office Visit Deyanira Vela, PAC [facility] [place] Showing recent visits within past 730 days and meeting all other requirements Future Appointments Date Type Provider Dept 11/23/23 Appointment Deyanira Vela, MARIE [facility] [place] Showing future appointments within next 90 days and meeting all other requirements Passed - No documented Systolic BP > 200 within past 3 months Passed - Number of active Serotonergic medications less than 3 E COMMERCE WEB DEVELOPER documented in this encounter Plan of Treatment Upcoming Encounters Date Type Department Care Team (Late st Contact Info) Description 11/14/2024 7:10 AM CDT Lab [facility] Internal Medicine [facility] [address] [place] [phone] Marilin Khalil 12/07/2024 10:15 AM CDT [facility] [address] [place] [address] Deyanira Vela PAC [address] [place] [address] documented as of this encounter Visit Diagnoses Not on filedocumented in this encounter Additional Health Concerns Infection Onset Date Last Indicated Resolved Time COVID - 19 09/11/2023 09/11/2023 09/11/2023 1:47 PM E COMMERCE WEB DEVELOPER Respiratory Rule-Out 09/11/2023 09/11/2023 024 1:52 PM E COMMERCE WEB DEVELOPER COVID - 19 09/11/2023 09/11/2023 09/11/2023 1:53 PM E COMMERCE WEB DEVELOPER Assessment Noted Time PHQ-9 Depression Total Score: 2 11/18/19 23 8:00 AM CDT documented as of this encounter Care Teams Glass Cut Off Tender Relationship Specialty Start Date End Date Deyanira Vela, PAC [address] [place] [address] PCP - General Physician Manager Testing 02/18/16 documented as of this encounter
--- OUTSIDE RECORDS SUMMARY | 2024-10-26 17:50 | XMS_ITS | Referral Summary ---
Author Organization [facility] Address [address] [place] [address] Care Team Providers Care Laborer Drying Department Name Role Phone Ciaran Hernandez Primary Care Prov ider Allergies Active Allergy Reactions Criticality Noted Date Comments Simvastatin Other (See comments) Low 08/15/2019 Joint pain with Zocor 40 mg daily Medications SUMAtriptan (IMITREX) 100 mg tablet Take 1 tablet (100 mg total) by mouth daily as needed 9 Active calcium citrate-vitamin D3 200 mg calcium -250 unit tablet Take 1 capsule by mouth daily Active multivitamin with minerals tablet Take 1 tablet by mouth daily Active escitalopram (LEXAPRO) 10 mg tablet Take 1 tablet (10 mg total) by mouth daily 2 Active HYDROcodone-acetam inophen (NORCO) 5-325 mg per tabletIndications: Pain Take 1 tablet by mouth every 6 (six) hours as needed for pain 15 tablet 4 Active Dupixent Pen pen injector Inject 2 mL (300 mg total) under the skin every 14 (fourteen) days 4 Active clobetasoL (TEMOVATE) 0.05 % cream Apply topically 2 (two) times a day 4 Active atorvastatin (LIPITOR) 40 mg tablet Take 1 tablet (40 mg total) by mouth daily 4 Active cyclobenzaprine (FLEXERIL) 5 mg tabletIndications: Lumbar back pain with radiculopathy affecting left lower extremity Take 1 tablet (5 mg total) by mouth 3 (three) times a day as needed for muscle spasms 45 tablet 4 Active meloxicam (MOBIC) 15 mg tabletIndications: Lumbar back pain with radiculopathy affecting left lower extremity TAKE 1 TABLET BY MOUTH EVERY DAY NEEDED FOR PAIN 30 tablet 1 4 Active lidocaine (LIDODERM) 5 %Indications:Lumba r spondylosis,Facet arthropathy,Lumbar herniated disc,Lumbar back pain with radiculopathy affecting left lower extremity Place 1 patch on the skin daily Apply to painful area 12 hours per day, remove for 12 hours. 90 patch 4 Active ondansetron ODT (ZOFRAN-ODT) 4 mg disintegrating tabletIndications: Lumbar spondylosis,Facet arthropathy,Lumbar herniated disc,Lumbar back pain with radiculopathy affecting left lower extremity Take 1 tablet (4 mg total) by mouth every 8 (eight) hours as needed for nausea or vomiting 30 tablet 4 Active Active Problems Problem Noted Date Diagnosed Date S/P laparoscopic cholecystectomy 11/18/2022 Migraine 06/13/2014 Overview (10/10/2016): Migraines Hypercholesterolemia 11/19/2013 Overview (10/11/2016): Hypercholesterolemia Resolved Problems Problem Noted Date Diagnosed Date Resolved Date Cholecystitis 11/01/2022 03/11/2024 Assessment & Plan (11/11/2022 10:42 AM CDT): We have discussed that the appetite should slowly improve over the next few weeks. Continue to slowly introduce foods as tolerates. We have discussed medication for the diarrhea if this does persist. We will give the patient returned to work release with lifting restrictions. She will call us back with any further questions or concerns. Immunizations Immunization Administration Dates Next Due Influenza, Quadrivalent, Natalie l Culture-based MDCK, Antibiotic Free, Intramuscular 05/07/2021 Influenza, Quadrivalent, Spl it, Preservative Free, Intramuscular 04/03/2020 Influenza, Trivalent, IM (MDV) 08/23/2018,2015 Influenza, Trivalent, Preser vative Free, Intramuscular 05/02/2018,04/22/2017,04/15/2016 Influenza, Unspecified 08/23/2018,04/09/2016 Moderna SARS-CoV-2 Monovalen t Vaccination (12+ YRS) 05/29/2021 ZOSTER Recombinant 06/15/2020,04/03/2020 Social History Tobacco Use Types Packs/Day Years Used Date Smoking Tobacco: Never Smokeless Tobacco: Never Alcohol Use Standard Drinks/Week Comments No 0 (1 standard drink = 0.6 oz pur e alcohol) AUDIT-C Answer Date Recorded Q1: How often do you have a drink containing alcohol? Never 11/01/2022 Q2: How many drinks containi ng alcohol do you have on a typical day when you are drinking? Patient does not drink Q3: How often do you have si x or more drinks on one occasion? Never 11/01/2022 Personal Safety Answer Date Recorded Have you ever been in or are you currently in a harmful physical or emotional relationship or is someone making you feel afraid or unsafe? 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 Gender Identity Not on file Sexual Orientation Not on file Last Filed Vital Signs Vital Sign Reading Time Taken Comments Blood Pressure 112/79 03/11/2024 9:17 AM CDT Pulse 69 03/11/2024 9:17 AM CDT Temperature 37.1 C (98.7 F) 12/28/2023 9:01 AM CDT Respiratory Rate 18 12/28/2023 9:01 AM CDT Oxygen Saturation 100% 12/28/2023 9:01 AM CDT Inhaled Oxygen Concentration - - Weight 101.6 kg (223 lb 14.4 oz) 03/11/2024 9:17 AM CDT Height 162.6 cm (5' 4 ) 03/11/2024 9:17 AM CDT Body Mass Index 38.43 03/11/2024 9:17 AM CDT Plan of Treatment Not on file Medical Devices Implanted Type Area Career Orientation Teacher Device Identifier Shelf Expiration Date Model / Serial / Lot [employer] Weck Hem-O-George Ligate Nonabsorbable Cartridge Medium Large Latex Free [id number] - [id number] Implanted:Qty: 6 on 11/02/2022 by Manjeet Christiansen MD at [facility] N/A: Bile Duct [employer] 08/25/2027 [id number] / / [id number] [employer] Weck Hem-O-George Ligate Nonabsorbable Cartridge Medium Large Latex Free [id number] - [id number] Implanted:Qty: 2 on 11/02/2022 by Manjeet Christiansen MD at [facility] N/A: Bile Duct [employer] 09/04/2024 [id number] / / [id number] Procedures Procedure Name Priority Date/Time Associated Diagnosis Comments SCREENING MAMMOGRAM BILATERAL W CEDRICK Schedule Routine, Read Routine (OP Routine) 04/30/2023 8:57 AM CDT Screening mammogram, encounter for from Last 3 Months or Most Recently Relevant to Health Maintenance Results * (ABNORMAL) Screening Mammogram Bilateral W Cedrick (04/30/2023 8:57 AM CDT) Anatomical Region Laterality Modality Breast Bilateral Mammography 04/30/2023 9:28 AM CDT Impressions 04/30/2023 9:28 AM CDT 1. Possible area of architectural distortion in the right breast. Further evaluation with right unilateral diagnostic mammogram and possible sonogram is recommended. 2. No new suspicious findings in the left breast. BI-RADS: 0 - Additional imaging evaluation is necessary. The patient has been or will be contacted. Electronically signed by: AYALA Irvin 04/30/2023 9:28 AM CDT EXAMINATION: SCREENING MAMMOGRAM BILATERAL W CEDRICK ORDERING HEALTHCARE PROVIDER: CIARAN HERNANDEZ HISTORY: Routine screening mammography. COMPARISON: 01/19/2021, 08/21/2016. TECHNIQUE: CC and MLO views of both breasts were obtained with digital technique using digital breast tomosynthesis with C view. Computer aided detection was utilized. FINDINGS: DENSITY: The breasts have scattered areas of fibroglandular density. BREASTS: There is an area of possible architectural distortion in the outer right breast at middle to anterior depth, best seen on CC view. A few benign microcalcifications are unchanged in both breasts. There are no new suspicious findings in the left breast. us Ciaran Hernandez PA IMG MAMMO PROCEDUR ES Final Result from Last 3 Months or Most Recently Relevant to Health Maintenance [place] [address] [place] [address] [place] [address] ANTHEM ACCESS Advance Directives For more information, please contact: [phone] * Full Code (Latest Code Status on File) Date Activated Date Inactivated Comments 11/01/2022 6:15 PM 11/02/2022 7:15 PM Care Teams Laborer Drying Department Relationship Specialty Start Date End Date Ciaran Hernandez PA PCP - General 08/21/16
--- OUTSIDE RECORDS SUMMARY | 2024-10-26 17:50 | XMS_ITS | Encounter Summary ---
Author Organization [facility] Address [address] [place] [address] Phone Care Team Providers Care Market Garden Worker Name Role Phone Deyanira Vela PAC Primary Care Pro vider Reason for Visit * Reason Comments Medication Refill Encounter Details Date Type Department Care Team (Late st Contact Info) Description 11/27/2022 Refill [facility] Medical Group - Internal Medicine - [place] [address] [place] [phone] Deyanira Vela, PAC [address] [place] [address] Medication Refill Social History Tobacco Use Types Packs/Day Years Used Date Smoking Tobacco: Never Smokeless Tobacco: Never Alcohol Use Standard Drinks/Week Comments No 0 (1 standard drink = 0.6 oz pur e alcohol) Occasional PHQ-2 Answer Date Recorded Total Score - Questions 1-9 2 11/03 Education Answer Date Recorded What is the [...] suspected to have Coronavirus/COVID-19? No / Unsure 11/17/2022 8:06 AM CDT documented as of this encounter Miscellaneous Notes * Telephone Encounter - Tegan Riddle RN - 11/27/2022 1:05 PM CDT Medication failed the protocol, provider to [...] Agonists (Oral and Nasal) Protocol Failed - 11/27/2022 8:40 AM Failed - This refill cannot be delegated; check utilization no more than 9 doses per month Passed - Visit with relevant provider in past 24 months or upcoming 90 days Recent Visits Date Type Provider Dept 11/17/22 Office Visit Deyanira Vela, MARIE [facility] [place] 09/29/22 Office Visit Deyanira Vela, PAC [facility] [place] 09/01/22 Office Visit Deyanira Vela, PAC [facility] [place] 11/08/21 [facility] [place] Showing recent visits within past 730 days [...] Info) Description 11/14/2024 7:10 AM CDT Lab [facility] Medical [facility] - [place] [address] Marilin Khalil [facility] 12/07/2024 10:15 AM CDT Office Visit [facility] [place] [address] [place] [address] Deyanira Vela, PAC [address] [place] [address] documented as of this encounter Visit Diagnoses Not on filedocumented in this encounter Additional Health Concerns Infection Onset Date Last Indicated Resolved Time COVID - 19 07/20/2023 07/20/2023 07/20/2023 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 Respiratory Rule Out - RPA 07/20/2023 07/20/2023 0 07/20/2023 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 COVID - 19 07/20/2023 07/20/2023 07/30/2023 12:1 6 AM OCCUPATIONAL WORK EXPERIENCE TEACHER COVID - 19 09/11/2023 09/11/2023 09/11/2023 1:47 PM OCCUPATIONAL WORK EXPERIENCE TEACHER Respiratory Rule-Out 09/11/2023 09/11/2023 024 1:52 PM OCCUPATIONAL WORK EXPERIENCE TEACHER COVID - 19 09/11/2023 09/11/2023 09/11/2023 1:53 PM OCCUPATIONAL WORK EXPERIENCE TEACHER Assessment Noted Time PHQ-9 Depression Total Score: 2 11/18/19 23 8:00 AM CDT documented as of this encounter Care Teams Market Garden Worker Relationship Specialty Start Date End Date Deyanira Vela, PAC [address] [place] [address] PCP - General Physician [employer] 02/18/16 documented as of this encounter
--- OUTSIDE RECORDS SUMMARY | 2024-10-26 17:50 | XMS_ITS | Clinical Summary ---
Author Organization [facility] Address [address] [place] [address] Care Team Providers Care Switcher Name Role Phone Ciaran Hernandez Primary Care [...] Vaccination (12+ YRS) 05/29/2021 ZOSTER Recombinant 06/15/2020,04/03/2020 Surgical History Surgery Date Site/Laterality Comments TUBAL LIGATION 1999 BTL OTHER SURGICAL HISTORY 1999 : OTHER SURGICAL HISTORY 1997 Abnormal pap: Cryotherapy Medical History Medical History Date Comments Hyperlipidemia Hyperlipidemia Hx Other Medical 1999 ; Outc ome: 40 week 6 lb(s) 12 oz Male History of abnormal cervical Papanicolaou smear 1997 Abnormal pap Anxiety Migraines Family History Medical History Relation Name Comments Cancer Brother Ever Teixeira COPD Father Ever Teixeira Early Father Ever Teixeira Heart attack Father Ever Teixeira COPD Mother Evelyn Teixeira Hypertension Mother Evelyn Teixeira Coronary artery disease Other 1 Fami ly history of Coronary artery disease; Hypertension Other 2 Family history of Hypertension; Asthma Other 3 Family history of Asthma; Breast cancer Neg Hx Ovarian cancer Neg Hx Thyroid cancer Neg Hx Relation Name Status Comments Brother Ever Teixeira Father Ever Teixeira Mother Evelyn Teixeira Other 1 Other 2 Other 3 Social History Tobacco Use Types Packs/Day Years [...] on file 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 Gender Identity Not on file Sexual Orientation Not on file Obstetrics History Para Term AB IAB SAB Ectopic Multiple Livin g Live Births 3 1 1 Date Outcome GA Total Labor Labor/2nd/3rd Weight Sex Type Anes PTL Karlie A1 A5 Name Clin Term Last Filed Vital Signs Vital Sign Reading [...] 03/11/2024 9:17 AM CDT Plan of Treatment Health Maintenance Due Date Last Done Comments Cervical Cancer Screening 1960 Colon Cancer Screening-Colonoscopy 1960 Depression Screening 1960 Hepatitis C Screening 1960 DTaP/Tdap/Td Vaccine (1 - Tdap) 1971 Hepatitis B Screening 1978 Regular Well Visit/Exam 18-64 1978 Covid-19 Vaccine ( season) 2024 05/29/2021, 09/07/2020 Breast Cancer Screening-Mammogram 04/30/2024 04/30/2023, 01/19/2021, 01/19/2021, Additional history exists Zoster Vaccine Completed 06/15/2020, 04/03/2020 Influenza Vaccine Completed 05/30/2024, , 05/19/2022, Additional history exists Pneumococcal vaccine <65 Aged Out No longer eligible based on patient's age to complete this topic Medical Devices Implanted Type Area Monument Letterer Device Identifier Shelf Expiration Date Model / Serial / Lot [employer] [place] [employer] Hem-O-George Ligate Nonabsorbable Cartridge Medium Large Latex Free [id number] - [id number] Implanted:Qty: 6 on 11/02/2022 by Manjeet Christiansen MD at [facility] N/A: Bile Duct [employer] 08/25/2027 [id number] / / [id number] [employer] Weck Hem-O-George Ligate Nonabsorbable Cartridge Medium Large Latex Free [id number] - [id number] Implanted:Qty: 2 on 11/02/2022 by Manjeet Christiansen MD at [facility] N/A: Bile Duct [employer] 09/04/2024 [id number] / / [id number] Procedures Procedure Name Priority Date/Time Associated Diagnosis [...] new suspicious findings in the left breast. Ciaran RENDON IMG MAMMO PROCEDUR ES Final Result from Last 3 Months or Most Recently Relevant to [place] [address] [place] [address] [place] [address] [place] [address] [place] [address] [place] [address] ANTHEM ACCESS Advance Directives For more information, please contact: [phone] * Full Code (Latest Code Status on File) Date Activated Date Inactivated Comments 11/01/2022 6:15 PM 11/02/2022 7:15 PM Care Teams Switcher Relationship Specialty Start Date End Date Ciaran Hernandez PA PCP - General 08/21/16
--- OUTSIDE RECORDS SUMMARY | 2024-10-26 17:50 | XMS_ITS | Encounter Summary ---
Author Organization [facility] Address [address] [place] [address] Phone Care Team Providers Care Stock Associate Name Role Phone Deyanira Vela PAC Primary Care Pro vider Reason for Visit * Reason Comments Medication Refill Encounter Details Date Type Department Care Team (Late st Contact Info) Description 04/05/2023 Refill [facility] - [facility] - [place] [address] [place] [phone] Deyanira Vela, PAC [address] [place] [address] Medication Refill Social History Tobacco [...] Telephone Encounter - Tegan Riddle RN - 04/06/2023 9:42 AM CDT Medication failed the protocol, provider [...] Agonists (Oral and Nasal) Protocol Failed - 04/05/2023 9:41 PM Failed - This refill cannot be delegated; check utilization no more than 9 doses per month Failed - No documented Systolic BP > 200 within past 3 months Passed - Visit with relevant provider in past 24 months or upcoming 90 days Recent Visits Date Type Provider Dept 11/17/22 Office Visit Deyanira Vela, MARIE [facility] [place] 09/29/22 Office Visit Deyanira Vela, MARIE [facility] [place] 09/01/22 Office Visit Deyanira Vela, MARIE [facility] [place] 11/08/21 Office Visit Deyanira Vela, PAC [facility] [place] Showing recent visits within past 730 days and meeting all other requirements Future Appointments Date Type Provider Dept 05/25/23 Appointment [facility] Showing future appointments within next 90 days and meeting all other requirements Passed - Number of active Serotonergic medications less than 3 documented in this encounter Plan of Treatment Upcoming Encounters Date Type Department Care Team (Late st Contact Info) Description 11/14/2024 7:10 AM CDT Lab [facility] Medical [facility] - Internal Medicine [place] [address] [place] [address] [place] [facility] 12/07/2024 10:15 AM CDT Office Visit [facility] Internal Medicine [place] [address] [place] [place] [address] Deyanira Vela, PAC [address] [place] [address] documented as of this encounter Visit Diagnoses Not on filedocumented in this encounter Additional Health Concerns Infection Onset Date Last Indicated Resolved Time COVID - 19 07/20/2023 07/20/2023 07/20/2023 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 Respiratory Rule Out - RPA 07/20/2023 07/20/2023 0 07/20/2023 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 COVID - 19 07/20/2023 07/20/2023 07/30/2023 12:1 6 AM LEATHER GOODS ASSEMBLER COVID - 19 09/11/2023 09/11/2023 09/11/2023 1:47 PM LEATHER GOODS ASSEMBLER Respiratory Rule-Out 09/11/2023 09/11/2023 024 1:52 PM LEATHER GOODS ASSEMBLER COVID - 19 09/11/2023 09/11/2023 09/11/2023 1:53 PM LEATHER GOODS ASSEMBLER Assessment Noted Time PHQ-9 Depression Total Score: 2 11/18/19 23 8:00 AM CDT documented as of this encounter Care Teams Stock Associate Relationship Specialty Start Date End Date Deyanira Vela, MARIE [address] [place] [address] PCP - General Physician Gasket Notcher 02/18/16 documented as of this encounter
--- OUTSIDE RECORDS SUMMARY | 2024-10-26 17:50 | XMS_ITS | Encounter Summary ---
Author Organization [facility] Address [address] [place] [address] Phone Care Team Providers Care Program Rep Name Role Phone Deyanira Vela PAC Primary Care Pro vider Reason for Visit * Reason Comments Medication Refill Encounter Details Date Type Department Care Team (Late st Contact Info) Description 01/30/2023 Refill [facility] - [place] [address] [place] [phone] Deyanira Vela, PAC [address] [place] [address] Medication Refill Social History Tobacco [...] Telephone Encounter - Tegan Riddle RN - 01/30/2023 1:38 PM CDT Medication failed the protocol, provider [...] Agonists (Oral and Nasal) Protocol Failed - 01/30/2023 9:00 AM Failed - This refill cannot be delegated; check utilization no more than 9 doses per month Passed - Visit with relevant provider in past 24 months or upcoming 90 days Recent Visits Date Type Provider Dept 11/17/22 Office Visit Deyanira Vela, MARIE [facility] [place] 09/29/22 Office Visit Deyanira Vela, MARIE [facility] [place] 09/01/22 Office Visit Deyanira Vela PAC [facility] [place] 11/08/21 Office Visit Deyanira Vela, [facility] [place] Showing recent visits within past 730 days [...] Info) Description 11/14/2024 7:10 AM CDT Lab [facility] Medical [facility] [address] [place] [address] [place] [address] [place] Khalil 12/07/2024 10:15 AM CDT Office Visit [facility] Internal Medicine [place] [address] [place] [phone] Deyanira Vela, MARIE [address] [place] [address] documented as of this encounter Visit Diagnoses Not on filedocumented in this encounter Additional Health Concerns Infection Onset Date Last Indicated Resolved Time COVID - 19 07/20/2023 07/20/2023 07/20/2023 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 Respiratory Rule Out - RPA 07/20/2023 07/20/2023 0 07/20/2023 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 COVID - 19 07/20/2023 07/20/2023 07/30/2023 12:1 6 AM GOLF CART REPAIRER COVID - 19 09/11/2023 09/11/2023 09/11/2023 1:47 PM GOLF CART REPAIRER Respiratory Rule-Out 09/11/2023 09/11/2023 024 1:52 PM GOLF CART REPAIRER COVID - 19 09/11/2023 09/11/2023 09/11/2023 1:53 PM GOLF CART REPAIRER Assessment Noted Time PHQ-9 Depression Total Score: 2 11/18/19 23 8:00 AM CDT documented as of this encounter Care Teams Program Rep Relationship Specialty Start Date End Date Deyanira Vela, PAC [address] [place] [address] PCP - General Physician Claims Assistant 02/18/16 documented as of this encounter
--- OUTSIDE RECORDS SUMMARY | 2024-10-26 17:50 | XMS_ITS | Clinical Summary ---
Author Organization [facility] Address [address] [facility] [address] [place] [address] Phone Care Team Providers Care Surgeon'S Assistant Name Role Phone Deyanira Vela PAC Primary Care Pro vider Allergies Active Allergy Reactions Criticality Noted Date Comments Simvastatin Other (see Comments) Low 08/15/2019 Joint pain with Zocor 40 mg daily Joint pain with Zocor 40 mg daily Medications Calcium Citrate-Vitamin D (CALCIUM + D PO) Take 1 Cap by mouth daily. Active Multiple Vitamins-Minerals (MULTIVITAMIN PO) Take 1 Tab by mouth daily. Active acyclovir (ZOVIRAX) 5 % Ointment Application Site: Rash on back, side, and breast area 30 g 1 11/09/19 22 Active SUMAtriptan (IMITREX) 100 MG Tablet TAKE 1 TABLET DAILY NEEDED FOR MIGRAINE. USE DIRECTED. MAY REPEAT DOSE IN 2 HOURS IF HEADACHE RECURS 9 Tablet 27 10/19/19 24 Active Dupixent 300 MG/2ML Solution Pen-injector 10/08/19 24 Active cyclobenzaprine (FLEXERIL) 5 MG Tablet Take 5 mg by mouth 3 times daily as needed. 01/05/20 24 Active meloxicam (MOBIC) 15 MG Tablet Take 15 mg by mouth daily. 01/05/20 24 Active escitalopram (LEXAPRO) 10 MG Tablet TAKE 1 TABLET DAILY 30 Tablet 11 03/08/20 24 Active triamcinolone (KENALOG) 0.1 % Ointment APPLY THIN FILM TO AFFECTED AREA(S) TWICE A DAY UNTIL HEALED 80 g 17 03/08/20 24 Active atorvastatin (LIPITOR) 40 MG TabletIndications: Hyperlipidemia, unspecified hyperlipidemia type TAKE 1 TABLET DAILY 90 Tablet 3 08/29/19 25 Active Active Problems Problem Noted Date Diagnosed Date COVID-19 04/20/2020 H/O colonoscopy 03/11/2017 Overview (03/11/2017): October 2015; repeat 8-10 years per pt; Dr Santos H/O mammogram 03/11/2017 Overview (03/29/2018): -2017; benign; [facility] H/O bone density study 03/11/2017 Overview (03/11/2017): 2011; [facility] Hyperlipemia 08/06/2015 MENDEZ (headache) Overview (03/29/2018): Gets FMLA forms completed annually for this Encounters Date Type Department Care Team Description 08/29/2024 Refill [facility] - [facility] - [place] [address] [place] [address] Deyanira Vela, [facility] Medication Refill from Last 3 Months Immunizations Immunization Administration Dates Next Due Covid-19 Vaccine, Vector-nr, Rs-ad26, Pf, 0.5 Ml (CRISTOPHER/J&J) 09/07/2020 Covid-19, Mrna, Lnp-s, PF, 5 0 mcg/0.25 mL dose (Moderna) 05/29/2021 Influenza Vaccine 05/02/2018,04/22/2017,04/15/20 16 Influenza Vaccine greater than 3 yrs 04/03/2020, 08/23/2018,04/09/2016 Influenza Vaccine less than 3 yrs 05/30/2024 Influenza Vaccine, MDCK,quad rivalent, pres free 05/19/2022 Influenza Vaccine, Quadrivalent, PF 05/07/2021,0 04/03/2020 Influenza, Injectable, Mdck, Preservative Free 05/27/2023,05/19/2022 Influenza, Injectable, Mdck,quadrivalent,with Preservative 05/07/2021 Influenza, Seasonal, Injectable, Undefined 08/23,04/09/2016 Zoster Vaccine Recombinant 06/15/2020,04/03/2020 Family History Medical History Relation Name Comments Heart Disease Father Hypertension Mother Relation Name Status Comments Father Alive Mother Alive Social History Tobacco Use Types Packs/Day Years Used Date Smoking Tobacco: Never Smokeless Tobacco: Never Tobacco Cessation:Counseling Given: No Alcohol Use Standard Drinks/Week Comments No 0 (1 standard drink = 0.6 oz pur e alcohol) Occasional C Utilities Answer Date Recorded In the past 12 months has th e saperatec, gas, oil, or water Medic Trace threatened to shut off services in your home? No 01/13/2024 Social Connection and Isolation Panel [NHANES] A nswer Date Recorded In a typical week, how many times do you talk on the phone with family, friends, or neighbors? Three times a week 01/13/20 How often do you get togethe r with friends or relatives? Once a week 01/13/2024 How often do you attend [facility] ch or confucianist services? 1 to 4 times per year 01/13/2024 Do you belong to any clubs o r organizations such as buddhism groups, unions, fraternal or athletic groups, or school groups? No 01/13/2024 How often do you attend meet ings of the clubs or organizations you belong to? 1 to 4 times per year 01/13/2024 Are you , , di vorced, , never , or living with a partner? 01/13/2024 AUDIT-C Answer Date Recorded Q1: How often do you have a drink containing alcohol? Never 01/13/2024 Q2: How many drinks containi ng alcohol do you have on a typical day when you are drinking? Patient does not drink Q3: How often do you have si x or more drinks on one occasion? Never 01/13/2024 Overall Financial Resource Strain (CARDIA) Answe r Date Recorded How hard is it for you to pa y for the very basics like food, housing, medical care, and heating? Not hard at all 01/13/2024 PHQ-2 Answer Date Recorded Total Score - Questions 1-9 2 11/03 [facility] of Occupat ional Health - Occupational Stress Questionnaire Answer Date Recorded Do you feel stress - tense, restless, nervous, or anxious, or unable to sleep at night because your mind is troubled all the time - these days? To some extent 01/13/2024 Exercise Vital Sign Answer Date Recorde d On average, how many days pe r week do you engage in moderate to strenuous exercise (like a brisk walk)? 5 days 01/13/2024 On average, how many minutes do you engage in exercise at this level? 30 min 01/13/2024 Hunger Vital Sign Answer Date Recorded Within the past 12 months, y ou worried that your food would run out before you got the money to buy more. Never true 01/13/20 24 Within the past 12 months, t he food you bought just didn't last and you didn't have money to get more. Never true 01/13/2024 PRAPARE - Transportation Answer Date Re corded In the past 12 months, has l ack of transportation kept you from medical appointments or from getting medications? No 01/03 In the past 12 months, has l ack of transportation kept you from meetings, work, or from getting things needed for daily living? No 01/13/2024 Housing Stability Vital Sign Answer Jose A e Recorded In the last 12 months, was t here a time when you were not able to pay the mortgage or rent on time? No 11/21/2023 In the last 12 months, how many places have you lived? 1 11/21/2023 In the last 12 months, was t here a time when you did not have a steady place to sleep or slept in a chcf (including now)? No 11/21/2023 Housing Stability Vital Sign Answer Jose A e Recorded In the last 12 months, was t here a time when you were not able to pay the mortgage or rent on time? No 01/13/2024 Number of Times Moved in the Last Year Not on fi le 01/13/2024 At any time in the past 12 m [facility], were you homeless or living in a chcf (including now)? No 01/13/2024 Education Answer Date Recorded What is the [...] Sign Reading Time Taken Comments Blood Pressure 128/86 05/05/2024 10:36 AM CDT Pulse 76 05/05/2024 10:36 AM CDT Temperature 35.1 C (95.2 F) 05/05/2024 10:36 AM CDT Respiratory Rate 12 05/05/2024 10:36 AM CDT Oxygen Saturation 97% 05/05/2024 10:36 AM CDT Inhaled Oxygen Concentration - - Weight 98.9 kg (218 lb) 05/05/2024 10:36 AM CDT Height 162.6 cm (5' 4 ) 01/15/2024 8:05 AM CDT Body Mass Index 37.42 01/15/2024 8:05 AM CDT Plan of Treatment Upcoming Encounters Date Type Department Care Team (Late st Contact Info) Description 11/14/2024 7:10 AM CDT Lab [facility] Internal Medicine [facility] [address] [place] [address] [place] Khalil [facility] 12/07/2024 10:15 AM CDT Office Visit [facility] Internal Medicine [facility] [address] [place] [address] Deyanira Vela, PAC [address] [place] [address] Health Maintenance Due Date Last Done Comments Hepatitis C Virus (HCV) Screening 1960 TdaP Immunization 1960 Cologuard 2010 Immunochemical Fecal Occult Blood 2010 Pneumococcal Immunization (50+ years) (1 of 1 - PCV) 2010 SARS-COV-2 Immunization ( - season) 2024 05/29/2021, 09/07/2020 Mammogram 04/30/2024 04/30/2023, 04/06, 01/19/2021, Additional history exists Colonoscopy 10/21/2025 10/22/2015 Colorectal Cancer Screening 10/21/2025 Pap Smear 01/14/2027 01/15/2024, 05/16/2013 Cervical Cancer Screening (CCS) 01/14/2029 HPV/Cotest 01/14/2029 01/15/2024 Respiratory Syncytial Virus (RSV) Immunization (Adult) (1 - 1-dose 75+ series) 2035 10/22/2015 Zoster Immunization Completed 06/15/2020, 0 Influenza Immunization Completed 4, 05/27/2023, 05/19/2022, Additional history exists Hepatitis B Immunization Aged Out No longer eligible based on patient's age to complete this topic Meningococcal Immunization (ACWY) Aged Out No longer eligible based on patient's age to complete this topic Rotavirus Immunization Aged Out No lo nger eligible based on patient's age to complete this topic Procedures Procedure Name Priority Date/Time Associated Diagnosis Comments HUMAN PAPILLOMA VIRUS (HPV) Routine 01/15/2024 10:01 AM CDT Encounter for screening for cervical cancer PATHOLOGY CYTOLOGY DESIGN MAKER Routine 01/15/2024 10:01 AM CDT Encounter for screening for cervical cancer MAMMOGRAM BILATERAL GENERIC 04/30/2023 12:00 AM CDT from Last 3 Months or Most Recently Relevant to Health Maintenance Results * PATHOLOGY CYTOLOGY DESIGN MAKER (01/15/2024 10:01 AM CDT) SPECIMEN ADEQUACY Satisfactory for evaluation. Endocervical/transf ormation zone component is present. 01/24/2024 9:02 AM CDT [facility] DESCRIPTIVE DIAGNOSIS NEGATIVE FOR INTRAEPITHELIAL LESIONS OR MALIGNANCY. 01/24/2024 9:02 AM CDT [facility] at 0902 CDT Automated Examination Analysis of this sample has been assisted by an automated imaging and review system ([employer] System, [employer], [place], [place]). This case is further evaluated and finalized by a table tender and/or pathologist. 01/24/2024 9:02 AM CDT [facility] Disclaimer The PAP smear is a screening test designed to detect cancerous or precancerous cells of the uterine cervix. It is one of the best means available for detection of cervical cancer but still carries an inherent false-negative rate. The consequences of a false-negative PAP result can be minimized by adhering to current screening guidelines. The following are general guidelines recommended by the ACS, ASCP, ASCCP, and ACOG: PAP testing is recommended every three years for women 21-29, Co-Testing , a PAP test in conjunction with an HPV (Human Papillomavirus) test for women ages 30-65, and no PAP or HPV testing for women under the age of 21 or older than 65 unless clinically indicated. 01/24/2024 9:02 AM CDT [facility] Case Report Gynecologic Cytology Report Case: [id number] Authorizing Provider: Umm Nguyen APRN, CNP Collected: 01/15/2024 10:01 AM Ordering Location: [facility] - Received: 01/15/2024 10:01 AM Internal Medicine - [place] First Screen: Ana Dleaney Specimen: TP Screen, Cervix/Endocervix 01/24/2024 9:02 AM CDT [facility] Other CERVIX UTERI STRUCTURE / Unknown Non-Phlebotomy Collection / Unknown 01/15/2024 10:01 AM CDT 01/15/2024 10:01 AM CDT us Umm Nguyen APRN, CNP PATHOLOGY/CYTOLOGY ORDER MARYSOL Final Result [facility] [address] [place] [address], * HUMAN PAPILLOMA VIRUS (HPV) (01/15/2024 10:01 AM CDT) HPV TYPE 16 NEGATIVE NEGATIVE 01/19/2024 3:39 PM CDT [facility] Comment: A negative high-risk HPV result does not exclude the possibility of future cytologic HSIL or underlying CIN2-3 or cancer. The presence of PCR inhibitors may cause false negative or invalid results. If concentrations of whole blood in the sample exceed 10% (dark red or brown coloration) in PreservCyt solution, there is a likelihood of obtaining a false-negative result. HPV TYPE 18 NEGATIVE NEGATIVE 01/19/2024 3:39 PM CDT [facility] Comment: A negative high-risk HPV result does not exclude the possibility of future cytologic HSIL or underlying CIN2-3 or cancer. The presence of PCR inhibitors may cause false negative or invalid results. If concentrations of whole blood in the sample exceed 10% (dark red or brown coloration) in PreservCyt solution, there is a likelihood of obtaining a false-negative result. HPV OTHER HIGH RISK TYPES, PCR NEGATIVE NEGATIVE 01/19/2024 3:39 PM CDT [facility] Comment: The following Other High Risk types were not detected: 31, 33, 35, 39, 45, 51, 52, 56, 58, 59, 66, and 68. A negative high-risk HPV result does not exclude the possibility of future cytologic HSIL or underlying CIN2-3 or cancer. The presence of PCR inhibitors may cause false negative or invalid results. If concentrations of whole blood in the sample exceed 10% (dark red or brown coloration) in PreservCyt solution, there is a likelihood of obtaining a false-negative result. HPV ORDER BE USED FOR SCREENING OR DIAGNOSTIC SCREENING 01/19/2024 3:39 PM CDT [facility] Other Non-Phlebotomy Collection / Unknown 01/15/2024 10:01 AM CDT 01/15/2024 10:01 AM CDT Narrative [facility] - 01/19/2024 3:39 PM CDT This test was performed using CAREN 5800 Real Time PCR. us Umm Nguyen EARTH SCIENCE FACULTY MEMBER, TELEPHONE COIN BOX COLLECTOR LAB SEND OUTS Final Re sult [facility] [address] [place] [address], [facility] [address] [place] [address] * MAMMOGRAM BILATERAL MISCELLANEOUS (04/30/2023 12:00 AM CDT) 04/30/2023 us Provider Scan IMG MAMMO ORDERABLES Final Resul t SCAN from Last 3 Months or Most Recently Relevant to [place] [id number] [facility] Care Teams Surgeon'S Assistant Relationship Specialty Start Date End Date Deyanira Vela, PAC [address] [place] [address] PCP - General Physician Vessel Captain 02/18/16
--- OUTSIDE RECORDS SUMMARY | 2024-10-26 17:50 | XMS_ITS | Encounter Summary ---
Author Organization [facility] Address [address] [place] [address] Phone Care Team Providers Care Warble Saw Operator Name Role Phone Deyanira Vela PAC Primary Care Pro vider Reason for Visit * Reason Comments Medication Refill Encounter Details Date Type Department Care Team (Late st Contact Info) Description 07/01/2023 Refill [facility] Group - Internal Medicine - [place] [address] [place] [phone] Deyanira Vela, PAC [address] [place] [address] Medication Refill Social History Tobacco Use Types [...] Telephone Encounter - Tegan Riddle RN - 07/01/2023 4:14 PM CST Medication failed the protocol, provider [...] Agonists (Oral and Nasal) Protocol Failed - 07/01/2023 3:51 PM Failed - This refill cannot be delegated; check utilization no more than 9 doses per month Failed - No documented Systolic BP > 200 within past 3 months Passed - Visit with relevant provider in past 24 months or upcoming 90 days Recent Visits Date Type Provider Dept 11/17/22 Office Visit Deyanira Vela, MARIE [facility] [place] 09/29/22 Office Visit Deyanira Vela, PAC [facility] [place] 09/01/22 Office Visit Deyanira Vela, PAC [facility] [place] 11/08/21 Office Visit Deyanira Vela, PAC [facility] [place] Showing recent visits within past 730 days and meeting all other requirements Future Appointments No visits were found meeting these conditions. Showing future appointments within next 90 days and meeting all other requirements Passed - Number of active Serotonergic medications less than 3 K WAITER documented in this encounter Plan of Treatment Upcoming Encounters Date Type Department Care Team (Late st Contact Info) Description 11/14/2024 7:10 AM CDT Lab [facility] Medical [facility] - Internal Medicine [place] [address] [place] [address] Marilin Khalil 12/07/2024 10:15 AM CDT Office Visit [facility] Internal Medicine [place] [address] [place] [address] Deyanira Vela, MARIE [address] [place] [address] documented as of this encounter Visit Diagnoses Not on filedocumented in this encounter Additional Health Concerns Infection Onset Date Last Indicated Resolved Time COVID - 19 07/20/2023 07/20/2023 07/20/2023 9:55 AM DRINK WAITER Respiratory Rule Out - RPA 07/20/2023 07/20/2023 0 07/20/2023 9:55 AM DRINK WAITER COVID - 19 07/20/2023 07/20/2023 07/30/2023 12:1 6 AM DRINK WAITER COVID - 19 09/11/2023 09/11/2023 09/11/2023 1:47 PM DRINK WAITER Respiratory Rule-Out 09/11/2023 09/11/2023 024 1:52 PM DRINK WAITER COVID - 19 09/11/2023 09/11/2023 09/11/2023 1:53 PM DRINK WAITER Assessment Noted Time PHQ-9 Depression Total Score: 2 11/18/19 23 8:00 AM CDT documented as of this encounter Care Teams Warble Saw Operator Relationship Specialty Start Date End Date Deyanira Vela, MARIE [address] [place] [address] PCP - General Physician Wool Cleaner 02/18/16 documented as of this encounter
--- OUTSIDE RECORDS SUMMARY | 2024-10-26 17:50 | XMS_ITS | Encounter Summary ---
Author Organization [facility] Address [address] [place] [address] Phone Care Team Providers Care Interior Horticulturist Name Role Phone Deyanira Vela PAC Primary Care Pro vider Reason for Visit * Reason Comments Medication Refill Encounter Details Date Type Department Care Team (Late st Contact Info) Description 10/17/2023 Refill [facility] - Internal Medicine - [place] [address] [place] [phone] Deyanira Vela, PAC [address] [place] [address] Medication Refill Social History Tobacco Use Types Packs/Day Years Used Date Smoking Tobacco: Never Smokeless Tobacco: Never Alcohol Use Standard Drinks/Week Comments No 0 (1 standard drink = 0.6 oz pur e alcohol) Occasional [facility] Utilities Answer Date Recorded In the past 12 months has [employer], gas, oil, or water [employer] threatened to shut off services in your [...] week 09/11/2023 How often do you attend [facility] or orthodox services? Patient declined 09/11/2023 Do you belong to any clubs o r organizations such as orthodox groups, unions, fraternal or athletic groups, or [...] Total Score - Questions 1-9 2 11/03 [facility] - Occupational Stress Questionnaire Answer [...] place to sleep or slept in a longterm (including now)? No 09/11/2023 Education Answer Date [...] Telephone Encounter - Tegan Riddle RN - 10/19/2023 11:09 AM CDT Medication failed the protocol, provider to review and approve the medication order if appropriate. Requested Prescriptions Pending Prescriptions Disp Refills SUMAtriptan (IMITREX) 100 MG Tablet [Pharmacy Med Name: SUMATRIPTAN TABS 9'S 100MG] 9 Tablet 27 Sig: TAKE 1 TABLET DAILY NEEDED FOR MIGRAINE. USE DIRECTED. MAY REPEAT DOSE IN 2 HOURS IF HEADACHE RECURS Not Delegated - Serotonin Agonists (Oral and Nasal) Protocol Failed - 10/17/2023 9:24 PM Failed - This refill cannot be delegated; check utilization no more than 9 doses per month Passed - Visit with relevant provider in past 24 months or upcoming 90 days Recent Visits Date Type Provider Dept 09/11/23 Telemedicine Deyanira Vela PAC [facility] [place] 07/20/23 Office Visit Yohan Tovar MD [facility] [place] 11/17/22 Office Visit Deyanira Vela PAC [facility] [place] 09/29/22 Office Visit Deyanira Vela PAC [facility] [place] 09/01/22 Office Visit Deyanira Vela PAC [facility] [place] 11/08/21 Office Visit Deyanira Vela, MARIE [facility] [place] Showing recent visits within past 730 days and meeting all other requirements Future Appointments Date Type Provider Dept 11/23/23 [facility]ment [facility] [place] Showing future appointments within next 90 days and meeting all other requirements Passed - No documented Systolic BP > 200 within past 3 months Passed - Number of active Serotonergic medications less than 3 documented in this encounter Plan of Treatment Upcoming Encounters Date Type Department Care Team (Late st Contact Info) Description 11/14/2024 7:10 AM CDT Lab [facility] Internal [facility] [place] [address] [place] [address] [place] [facility] 12/07/2024 10:15 AM CDT Office Visit [facility] [place] [address] [place] [address] Deyanira Vela PAC [address] [place] [address] documented as of this encounter Visit Diagnoses Not on filedocumented in this encounter Additional Health Concerns Assessment Noted Time PHQ-9 Depression Total Score: 2 11/18/19 23 8:00 AM CDT documented as of this encounter Care Teams Interior Horticulturist Relationship Specialty Start Date End Date Deyanira Vela PAC [address] [place] [address] PCP - General Physician Procedure Rn 02/18/16 documented as of this encounter
--- OUTSIDE RECORDS SUMMARY | 2024-10-26 17:50 | XMS_ITS | Encounter Summary ---
Author Organization [facility] Address [address] [place] [address] Phone Care Team Providers Care Director Biostatistics Name Role Phone Deyanira Vela PAC Primary Care Pro vider Reason for Visit * Reason Comments Medication Refill Encounter Details Date Type Department Care Team (Late st Contact Info) Description 07/15/2023 Refill [facility] - Internal Medicine - [place] [address] [place] [phone] Deyanira Vela, PAC [address] [place] [address] Medication Refill Social History Tobacco [...] Telephone Encounter - Tegan Riddle RN - 07/15/2023 8:14 AM CST Medication failed the protocol, provider to review and approve the medication order if appropriate. Requested Prescriptions Pending Prescriptions Disp Refills escitalopram (LEXAPRO) 10 MG Tablet [Pharmacy Med Name: ESCITALOPRAM 10 MG TABLET] 30 Tablet 8 Sig: TAKE 1 TABLET BY MOUTH EVERY DAY SSRI (6 Month Refill Only) Protocol Failed - 07/15/2023 12:35 AM Failed - Visit with relevant provider in past 6 months or upcoming 90 days Recent Visits No visits were found meeting these conditions. Showing recent visits within past 182 days and meeting all other requirements Future Appointments No visits were found meeting these conditions. Showing future appointments within next 90 days and meeting all other requirements Failed - Has an encounter in the past 6 months with a depression, anxiety, adjustment disorder, OCD, or PTSD visit diagnosis Passed - Patient has established therapy with SSRI for at least 6 months D SPLATTER ANALYST documented in this encounter Plan of Treatment Upcoming Encounters Date Type Department Care Team (Late st Contact Info) Description 11/14/2024 7:10 AM CDT Lab [facility] Internal [facility] [address] [place] [phone] [place] [facility] 12/07/2024 10:15 AM CDT Office Visit [facility] Internal [facility] [address] [place] [phone] Deyanira Vela, [facility] [address] [place] [address] documented as of this encounter Visit Diagnoses Not on filedocumented in this encounter Additional Health Concerns Infection Onset Date Last Indicated Resolved Time COVID - 19 07/20/2023 07/20/2023 07/20/2023 9:55 AM BLOOD SPLATTER ANALYST Respiratory Rule Out - RPA 07/20/2023 07/20/2023 0 07/20/2023 9:55 AM BLOOD SPLATTER ANALYST COVID - 19 07/20/2023 07/20/2023 07/30/2023 12:1 6 AM BLOOD SPLATTER ANALYST COVID - 19 09/11/2023 09/11/2023 09/11/2023 1:47 PM BLOOD SPLATTER ANALYST Respiratory Rule-Out 09/11/2023 09/11/2023 024 1:52 PM BLOOD SPLATTER ANALYST COVID - 19 09/11/2023 09/11/2023 09/11/2023 1:53 PM BLOOD SPLATTER ANALYST Assessment Noted Time PHQ-9 Depression Total Score: 2 11/18/19 23 8:00 AM CDT documented as of this encounter Care Teams Director Biostatistics Relationship Specialty Start Date End Date Deyanira Vela, PAC [address] [place] [address] PCP - General Physician Campground Manager 02/18/16 documented as of this encounter
== END 2024-10-26 17:53 | disposition home or self-care (01) ==
PROVIDERS: Emergency Provider Nurse Practitioner Family; PCP Physician Assistant
DX: R30.0 Dysuria (principal); J30.9 Allergic rhinitis, unspecified; E78.5 Hyperlipidemia, unspecified; F41.9 Anxiety disorder, unspecified
CPT/HCPCS: 81003; 87086; 99213; G0463

== ENCOUNTER 2024-12-20 08:52 | Emergency (ER) | payer BC, SELFPAY ==
--- NOTE | ~2024-12-20 | XR_ITS ---
XR chest 2V 12/20/2024 09:36 Indication: Cough and congestion Procedure: 2 view chest Comparison: 07/19/2017 Findings: There are infiltrates of the left upper thorax, suspicious for pneumonia. Heart size normal . No pleural effusion, edema or pneumothorax. No acute osseous abnormality. Impression: 1: Left upper lobe infiltrates, suspicious for pneumonia. Reviewed, dictated and finalized at location A. Impression: 1: Left upper lobe infiltrates, suspicious for pneumonia.
[2024-12-20 09:13] VITALS: BP 124/78; PULSE 67; RESP 16; TEMP 36.3; O2SAT 98
--- NOTE | 2024-12-20 09:25 | ED_ITS ---
HPI - URI/Sore Throat General Chief Complaint: Upper Respiratory Infection Stated Complaint: Headache/Sore Throat/Cough Source: patient Mode of arrival: ambulatory Limitations: no limitations History of Present Illness HPI Narrative: patient is a 64-year-old female who presents to clinic with complaints of a cough,sore throat, and nasal congestion for 4 days. She states that she has been running a low-grade fever of 99F. She took COVID test, and it was negative. Patient has been taking Zyrtec and Mucinex [id number] with relief. Denies any difficulty swallowing, difficulty breathing, nausea, vomiting, or diarrhea. Related Data Allergies Allergy/AdvReac Type Severity Reaction Status Date / Time simvastatin AdvReac Joint Pain Verified 10/26/24 17:32 Review of Systems Review of Systems: CONSTITUTIONAL: Denies body aches, fever, chills, or sweats. EYES: Denies visual changes, redness, or discharge. ENT: Reports sore throat and congestion. Denies rhinorrhea or otalgia. CARDIOVASCULAR: Denies chest pain, palpitations, or edema. RESPIRATORY: Denies dyspnea. Reports cough. GASTROINTESTINAL: Denies abdominal pain, nausea, vomiting, or diarrhea. SKIN: Denies rash NEUROLOGIC: Denies headache All systems reviewed & are unremarkable except as noted in HPI and below PMFSH Past Medical History Medical History Right ankle sprain Anxiety Hyperlipidemia Surgical History Surgical History History of cholecystectomy Family History Family History Mother Family history non-contributory Social History Social History Smoking status: Never smoker Substance use: never Living arrangements: with family Gender identity (if verbalized by the patient): Female Sexual Orientation (if Verbalized by the Patient): Straight or Heterosexual Spiritual care concerns: No Comments At time of signature, I have reviewed and agree with nursing past medical, surgical, social and family history unless otherwise noted. Please see nursing chart for further information. There is no relevant family history pertinent to the presenting complaint. Exam Narrative: GENERAL: Ill-appearing, ?no acute distress. EYES: ?conjunctivae clear ENT: Mucous membranes moist. TM pearly lundy with normal light reflex bilaterally; no tragal tenderness. Oropharynx erythematous without lesions. Tonsils enlarged and without exudate. No drooling, Hoarseness noted, no trismus, uvula midline. No tripod positioning, hot potato voice, or soft palate swelling. NECK: Supple. No lymphadenopathy CHEST: Clear to auscultation, breath sounds equal. ?No respiratory distress, speaks in full sentences. HEART: Regular rate and rhythm. No murmur heard. SKIN: Warm, dry, no rash. NEURO: Alert and oriented x3.? Course Course Level of Care: Express Care Visit Vital Signs Vital signs: Vital Signs Temperature 97.3 F L 12/20/24 09:13 Pulse Rate 67 12/20/24 09:13 Respiratory Rate 16 12/20/24 09:13 Blood Pressure 124/78 12/20/24 09:13 Pulse Oximetry 98 12/20/24 09:13 Oxygen Delivery Room Air 12/20/24 09:13 Temperature 97.3 F L 12/20/24 09:13 Pulse Rate 67 12/20/24 09:13 Respiratory Rate 16 12/20/24 09:13 Blood Pressure 124/78 12/20/24 09:13 Pulse Oximetry 98 12/20/24 09:13 Oxygen Delivery Room Air 12/20/24 09:13 Reviewed. MDM - URI/Sore Throat MDM Narrative Medical decision making narrative: Discussed physical exam findings. Chest x-ray shows pneumonia. Amoxicillin, Prednisone, and benzonatate prescriptions given. Advised supportive measures and signs/symptoms to go to the ER. Pt is appropriate for outpatient treatment and discussed the importance of following up with primary care. Differential Diagnosis Differential diagnosis: Likely upper respiratory infection, sinusitis, viral infection, bronchitis and other (pneumonia) Lab Data Attestation: I reviewed the patient's lab results. Labs: Lab Results 12/20/24 Range/Units 09:40 POC Grp A Strep Screen Negative (Negative) Critical Care Time Critical Care Time Critical Care Time: No Discharge Plan Discharge Clinical Impression: Pneumonia Qualifiers: Pneumonia type: due to unspecified organism Laterality: unspecified laterality Lung location: lower lobe of lung Qualified Code(s): J18.9 - Pneumonia, unspecified organism Patient Disposition: Home Condition: Stable Instructions: Pneumonia (ED) Additional Instructions: Pneumonia is a lung infection that can cause a fever, cough, and trouble breathing. How it spreads: When someone with bacterial pneumonia coughs, sneezes, or talks, they release respiratory droplets into the air that can be inhaled by others. You can also get pneumonia by touching a contaminated surface or object and then touching your mouth or nose. You're generally contagious for around 48 hours after starting antibiotics and your fever goes away. To prevent the spread of pneumonia, you can: ? Get vaccinated ? Wash your hands often with soap and water for 20 seconds ? Cover your mouth with a tissue when you cough or sneeze ? Avoid people who are already sick with pneumonia ? Stay home when you have pneumonia Take antibiotics as directed until complete. Take prednisone and benzonatate as prescribed. eat small frequent meals. Get lots of rest and drink fluids. Alternate Tylenol and ibuprofen for pain/fever If you have nasal congestion, you can take Zyrtec, Claritin along with Flonase spray Call your Primary Care Doctor and make a follow-up appointment in 3 days. Go to the ER for worsening symptoms or concerns Patient Language: Finnish Prescriptions: New prednisone 20 mg tablet 40 mg PO DAILY 5 Days Qty: 10 0RF amoxicillin 500 mg tablet 1,000 mg PO TID Qty: 5 0RF benzonatate 200 mg capsule 200 mg PO BID PRN (Reason: cough) Qty: 20 0RF Follow-up/Referrals: Dane,JUSTICE Mcmillan [Primary Care Provider] - Time of Disposition: 09:53
[2024-12-20 09:42] LABS: EDSTREPNEGPOS1 Negative (Negative)
== END 2024-12-20 10:04 | disposition home or self-care (01) ==
PROVIDERS: PCP Physician Assistant
DX: J18.9 Pneumonia, unspecified organism (principal); E78.5 Hyperlipidemia, unspecified
CPT/HCPCS: 71046; 87081; 87880; 99213; G0463